=== PATIENT | male | born 1970 | race Caucasian/White ===

== ENCOUNTER → 2016-10-07 | Outpatient (CLI) | payer OTHER ==
[~2016-10-07] MED LIST: ATOR-24 PO; CLZ100 PO; FIBER PO; FLUT0.15; LORA-741 PO; MULTTAB58 PO; OMEG10007 PO; OMEP20CA59 PO; POLY335040 PO; PSYLCAP5 PO; STLS PO; THIA100T11 PO
--- NOTE | 2016-10-07 17:08 | DIAGNOSTIC IMAGING REPORT ---
CHEST 2 VIEWS ROUTINE CLINICAL HISTORY: Chronic cough. Upper respiratory infection. COMPARISON STUDY: Chest radiograph June 03, 2012. FINDINGS: Lung volumes are normal. There is no pneumothorax or pleural effusion. There is no evidence of pulmonary edema. Cardiac size is normal. Mediastinal contours are normal. Linear bilateral lower lung opacities are suggestive of atelectasis. IMPRESSION: No acute cardiopulmonary findings. Electronically signed by: Reed Aviles M.D. 10/07/2016 5:06 PM Dictated Date/Time: 10/07/2016 5:04 PM
== END | disposition home or self-care (01) ==
LOC: C.RAD1850 16:35
PROVIDERS: ATTEND Family Medicine
DX: R05 Cough (principal); J06.9 Acute upper respiratory infection, unspecified